=== PATIENT | female | born 1990 | race Caucasian/White ===

== ENCOUNTER 2017-04-20 16:53 | Observation (INO) | payer OTHER ==
[~2017-04-20] VITALS: Ht 160 cm; Wt 58.2 kg
[~2017-04-20 16:53] MED LIST: ONDA4TAB97 PO
--- NOTE | 2017-04-20 17:01 | ER Report ---
History and Physical Time Seen By MD: 17:00 HPI/ROS CHIEF COMPLAINT: Fever, jaundice HISTORY OF PRESENT ILLNESS: 27-year-old female patient presents to emergency room with complaint of fever and jaundice. Patient states that she is not been feeling well for proximally 7 days. She states that she was seen at the urgent care, and they diagnosed with influenza. She states that she followed up with the urgent care again on Sunday of this past week and they felt that she had a otitis media. They started her on cefdinir. She went and saw the beginning yesterday, they told her that she had mono and there is nothing they could do. She states that her father came to visit today, when he saw her he stated that she looked yellow. He took her to the [facility]. [facility] for further evaluation. Patient states she's been having neck pain, headache. She states it seems to get better after she takes Aleve. She states that she's been taking [id number]. She states she is not taking more than one Tylenol a day. She denies having any nausea, vomiting or diarrhea. She states that her urine has become darker. REVIEW OF SYSTEMS: Respiratory: No cough, no dyspnea. Cardiovascular: No chest pain, no palpitations. Gastrointestinal: No vomiting, no abdominal pain. 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 Reviewed Nurses Notes: Yes Hx Substance Use Disorder: No Hx Alcohol Use: Yes Constitutional Vital Sign - Last 24 Hours 04/20/17 04/20/17 04/20/17 04/20/17 17:00 17:01 17:07 17:30 Temp 97.6 Pulse 104 105 Resp 20 B/P (MAP) 125/86 125/86 (99) 121/87 (98) Pulse Ox 95 95 O2 Delivery Room Air 04/20/17 04/20/17 04/20/17 04/20/17 17:35 18:05 18:30 18:35 Pulse ??? 95 95 B/P (MAP) 124/99 (107) Pulse Ox 100 97 Physical Exam General Appearance: The patient is alert, has no immediate need for airway protection and no current signs of toxicity. Patient does appear jaundiced Eyes: Pupils equal and round no injection. Patient has jaundice bilaterally. Respiratory: Chest is non tender, lungs are clear to auscultation. Cardiac: regular rate and rhythm Gastrointestinal: Abdomen is soft and tender in the epigastric region, right upper quadrant, no masses, bowel sounds are hypoactive. Musculoskeletal: Neck: Neck is supple and non tender. Patient has enlarged cervical lymphadenopathy. Extremities have full range of motion and are non tender. Skin: No rashes or lesions. Patient is jaundiced to arms and face. DIFFERENTIAL DIAGNOSIS: After history and physical exam differential diagnosis was considered for viral syndrome, HIV, mono, influenza, cholecystitis, hepatitis Medical Decision Making Data Points Result Diagram: 04/20/17 1707 04/20/17 170 Laboratory Hematology Test 04/20/17 16:55 04/20/17 17:07 Urine Color Eve Urine Clarity Clear Urine pH 6.0 pH (4.8-9.5) Urine Specific [place] 1.009 Urine Protein Negative mg/dL (NEGATIVE) Urine Glucose (UA) Negative mg/dL (NEGATIVE) Urine Ketones Trace mg/dL (NEGATIVE) Urine Blood Negative (NEGATIVE) Urine Nitrite Negative (NEGATIVE) Urine Bilirubin Negative (NEGATIVE) Urine Urobilinogen 2.0 mg/dL (0.2-1.9) Urine Leukocyte Esterase Negative (NEGATIVE) Urine RBC <1 /HPF (0-2/HPF) Urine WBC 2 /HPF (0-5/HPF) Urine Squamous Epithelial Cells Many /LPF (</=FEW) Urine Bacteria Negative /HPF (NONE-FEW) Urine Mucus None /HPF (NONE-FEW) Red Blood Count 5.14 M/uL (4.17-5.56) Mean Corpuscular Volume 86.6 fL (80.0-96.0) Mean Corpuscular Hemoglobin 30.2 pg (26.0-33.0) Mean Corpuscular Hemoglobin Concent 34.9 g/dL (32.0-36.0) Red Cell Distribution Width 12.6 % (11.5-14.5) Mean Platelet Volume 8.3 fL (7.2-11.1) Neutrophils (%) (Auto) % (39.4-72.5) Lymphocytes (%) (Auto) % (17.6-49.6) Monocytes (%) (Auto) % (4.1-12.4) Eosinophils (%) (Auto) % (0.4-6.7) Basophils (%) (Auto) % (0.3-1.4) Nucleated RBC Relative Count (auto) /100WBC Neutrophils # (Auto) K/uL (2.0-7.4) Lymphocytes # (Auto) K/uL (1.3-3.6) Monocytes # (Auto) K/uL (0.3-1.0) Eosinophils # (Auto) K/uL (0.0-0.5) Basophils # (Auto) K/uL (0.0-0.1) Nucleated RBC Absolute Count (auto) K/uL Neutrophils % (Manual) 14 % (39.4-72.5) Lymphocytes % (Manual) 67 % (17.6-49.6) Atypical Lymphocytes % 13 % Monocytes % (Manual) 6 % (4.1-12.4) Eosinophils % (Manual) 0 % (0.4-6.7) Basophils % (Manual) 0 % (0.3-1.4) Erythrocyte Sedimentation Rate 31 mm/HOUR (0-20) Prothrombin Time 13.5 seconds (12.0-14.4) Prothromb Time International Ratio 1.03 Activated Partial Thromboplast Time 33 seconds (23-35) Sodium Level 136 mmol/L (137-145) Potassium Level 3.2 mmol/L (3.5-5.0) Chloride Level 98 mmol/L (98-107) Carbon Dioxide Level 25 mmol/L (22-31) Blood Urea Nitrogen 5 mg/dl (7-18) Creatinine 0.70 mg/dl (0.52-1.04) Glomerular Filtration Rate Calc > 60.0 Random Glucose 97 mg/dl (75-110) Calcium Level 9.0 mg/dl (8.4-10.2) Total Bilirubin 7.7 mg/dl (0.2-1.3) Aspartate Amino Transf (AST/SGOT) 452 U/L (0-35) Alanine Aminotransferase (ALT/SGPT) 752 U/L (0-56) Alkaline Phosphatase 486 U/L (0-126) C-Reactive Protein 3.3 mg/dl (<1.0) Total Protein 7.6 gm/dl (6.3-8.2) Albumin 3.7 g/dl (3.5-5.0) Monoscreen Positive (NEGATIVE) HIV (1&2) Antibody Negative (NEGATIVE) Influenza Virus Type A (PCR) Negative (NEGATIVE) Influenza Virus Type B (PCR) Negative (NEGATIVE) Group A Streptococcus Screen Negative (NEGATIVE) Chemistry Test 04/20/17 16:55 04/20/17 17:07 Urine Color Eve Urine Clarity Clear Urine pH 6.0 pH (4.8-9.5) Urine Specific [place] 1.009 Urine Protein Negative mg/dL (NEGATIVE) Urine Glucose (UA) Negative mg/dL (NEGATIVE) Urine Ketones Trace mg/dL (NEGATIVE) Urine Blood Negative (NEGATIVE) Urine Nitrite Negative (NEGATIVE) Urine Bilirubin Negative (NEGATIVE) Urine Urobilinogen 2.0 mg/dL (0.2-1.9) Urine Leukocyte Esterase Negative (NEGATIVE) Urine RBC <1 /HPF (0-2/HPF) Urine WBC 2 /HPF (0-5/HPF) Urine Squamous Epithelial Cells Many /LPF (</=FEW) Urine Bacteria Negative /HPF (NONE-FEW) Urine Mucus None /HPF (NONE-FEW) White Blood Count 9.1 k/uL (4.5-11.0) Red Blood Count 5.14 M/uL (4.17-5.56) Hemoglobin 15.5 g/dL (12.0-16.0) Hematocrit 44.6 % (34.0-47.0) Mean Corpuscular Volume 86.6 fL (80.0-96.0) Mean Corpuscular Hemoglobin 30.2 pg (26.0-33.0) Mean Corpuscular Hemoglobin Concent 34.9 g/dL (32.0-36.0) Red Cell Distribution Width 12.6 % (11.5-14.5) Platelet Count 90 K/uL (150-450) Mean Platelet Volume 8.3 fL (7.2-11.1) Neutrophils (%) (Auto) % (39.4-72.5) Lymphocytes (%) (Auto) % (17.6-49.6) Monocytes (%) (Auto) % (4.1-12.4) Eosinophils (%) (Auto) % (0.4-6.7) Basophils (%) (Auto) % (0.3-1.4) Nucleated RBC Relative Count (auto) /100WBC Neutrophils # (Auto) K/uL (2.0-7.4) Lymphocytes # (Auto) K/uL (1.3-3.6) Monocytes # (Auto) K/uL (0.3-1.0) Eosinophils # (Auto) K/uL (0.0-0.5) Basophils # (Auto) K/uL (0.0-0.1) Nucleated RBC Absolute Count (auto) K/uL Neutrophils % (Manual) 14 % (39.4-72.5) Lymphocytes % (Manual) 67 % (17.6-49.6) Atypical Lymphocytes % 13 % Monocytes % (Manual) 6 % (4.1-12.4) Eosinophils % (Manual) 0 % (0.4-6.7) Basophils % (Manual) 0 % (0.3-1.4) Erythrocyte Sedimentation Rate 31 mm/HOUR (0-20) Prothrombin Time 13.5 seconds (12.0-14.4) Prothromb Time International Ratio 1.03 Activated Partial Thromboplast Time 33 seconds (23-35) Glomerular Filtration Rate Calc > 60.0 Calcium Level 9.0 mg/dl (8.4-10.2) Total Bilirubin 7.7 mg/dl (0.2-1.3) Aspartate Amino Transf (AST/SGOT) 452 U/L (0-35) Alanine Aminotransferase (ALT/SGPT) 752 U/L (0-56) Alkaline Phosphatase 486 U/L (0-126) C-Reactive Protein 3.3 mg/dl (<1.0) Total Protein 7.6 gm/dl (6.3-8.2) Albumin 3.7 g/dl (3.5-5.0) Monoscreen Positive (NEGATIVE) HIV (1&2) Antibody Negative (NEGATIVE) Influenza Virus Type A (PCR) Negative (NEGATIVE) Influenza Virus Type B (PCR) Negative (NEGATIVE) Group A Streptococcus Screen Negative (NEGATIVE) Coagulation Test 04/20/17 17:07 Prothrombin Time 13.5 seconds Prothromb Time International Ratio 1.03 Activated Partial Thromboplast Time 33 seconds Urinalysis Test 04/20/17 16:55 Urine Color Eve Urine Clarity Clear Urine pH 6.0 pH (4.8-9.5) Urine Specific [place] 1.009 Urine Protein Negative mg/dL (NEGATIVE) Urine Glucose (UA) Negative mg/dL (NEGATIVE) Urine Ketones Trace mg/dL (NEGATIVE) Urine Blood Negative (NEGATIVE) Urine Nitrite Negative (NEGATIVE) Urine Bilirubin Negative (NEGATIVE) Urine Urobilinogen 2.0 mg/dL (0.2-1.9) Urine Leukocyte Esterase Negative (NEGATIVE) Urine RBC <1 /HPF (0-2/HPF) Urine WBC 2 /HPF (0-5/HPF) Urine Squamous Epithelial Cells Many /LPF (</=FEW) Urine Bacteria Negative /HPF (NONE-FEW) Urine Mucus None /HPF (NONE-FEW) EKG/Imaging Imaging EXAMINATION: CT Abdomen and Pelvis With Contrast 04/20/2017 5:23 PM HISTORY: abdominal pain TECHNIQUE: Spiral scan was through the abdomen and pelvis during injection of nonionic iodinated intravenous contrast. Contrast: 75 mL of IV Isovue 370. One of the following dose optimization techniques was utilized in the performance of this exam: Automated exposure control; adjustment of the mA and/ or kV according to the patient's size; or use of an iterative reconstruction technique. Specific details can be referenced in the facility's radiology CT exam operational policy. COMPARISON STUDIES: Separate chest x-ray today. FINDINGS: Liver / biliary: Mildly prominent. Smooth capsular contours. No focal finding. Pancreas: negative Spleen: Borderline to mildly prominent. 1 cm cyst along the posterior edge. Adrenal glands: negative Kidneys / retroperitoneum: No stone or obstruction. Normal enhancement without findings of pyelonephritis/UTI. Pelvic structures: Partially retroverted uterus. Free fluid in the cul-de- sac is within physiologic normal range in a female of this age. No ovarian or adnexal pathology evident otherwise. Bowel / peritoneum / mesenteries: Negative. No obstruction or focal inflammation. Normal appendix. Vessels: negative Musculoskeletal / Body wall: negative Lymph node assessment: Nonspecific retroperitoneal and inguinal lymph nodes are likely reactive. No clear pathologic adenopathy. Lower chest: negative IMPRESSION: 1. Mild nonspecific hepatosplenomegaly. Patient also has small and somewhat numerous retroperitoneal lymph nodes which are most likely reactive. 2. Free fluid in the pelvis. This is within physiologic normal range in a female of this age but can indicate recent ovarian cyst or follicle rupture. Report Dictated By: Cedric Rose MD at 04/20/2017 5:59 PM Report E-Signed By: Cedric Rose MD at 04/20/2017 6:06 PM EXAMINATION: PA and Lateral Chest 04/20/2017 5:18 PM HISTORY: Fever. Patient reports not feeling well for one week. COMPARISON: None FINDINGS: Cardiomediastinal contours: Normal Lungs and pleura: Normal Bones/soft tissues: Normal IMPRESSION: No acute cardiopulmonary abnormality. Report Dictated By: Cedric Rose MD at 04/20/2017 5:58 PM Report E-Signed By: Cedric Rose MD at 04/20/2017 5:59 PM ED Course/Re-evaluation ED Course Patient was admitted to examine, history and physical were obtained. Differential diagnoses were considered. On examination patient does appear to be jaundiced. She does have some tenderness to the upper abdomen. A CBC, CMP, chest x-ray, urinalysis, Monospot, hepatitis A panel, hepatitis B antibody and surface antigen, hepatitis C, HIV and strep screen were done. The patient had a low platelet count of 90, liver enzymes were elevated at 500 and 700. Bilirubin was 7.7. She was also positive for mono. She was negative for HIV. He chest x- ray and a CT scan of the abdomen and pelvis was done. The chest x-ray was negative, the CT scan shows hepatosplenomegaly with some enlarged lymph nodes in the abdomen. I discussed the case with isrrael Anderson. He felt that it would be reasonable to admit the patient to hospital, monitor overnight and rehydrated. I discussed the findings with the patient and her father. Patient did agree to be admitted to the hospital. We'll go ahead and admit her to the hospital with diagnosis of mono and jaundice. Decision to Disposition Date: Apr 20, 2017 Decision to Disposition Time: 18:55 Depart Departure Latest Vital Signs Vital Signs Date Time Temp Pulse Resp B/P (MAP) Pulse Ox O2 Delivery O2 Flow Rate FiO2 04/20/17 18:35 95 97 04/20/17 18:30 124/99 (107) 04/20/17 17:01 97.6 20 Room Air Impression: Primary Impression: Mononucleosis Additional Impression: Jaundice Condition: Condition Unchanged Disposition: Admitted from ER New Scripts No Active Prescriptions or Reported Meds Problem Qualifiers NAYE KING Apr 20, 2017 17:01
[2017-04-20] MEDS ORDERED: NS(*) 0.9% 1000 ML BAG 1,000 ML IV ONE (17:18)
[2017-04-20] MEDS ORDERED: IOPAMIDOL 76% 75 ML INFUS BTL 75 ML ONE (17:32)
[2017-04-20] MEDS ORDERED: NS 0.9% 20 ML SDV 60 ML ONE (17:32)
[2017-04-20 17:34] LABS: PLATELET COUNT, AUTOMATED 90 K/uL (150-450)
[2017-04-20 17:42] LABS: INR 1.03
--- NOTE | 2017-04-20 18:04 | RADIOLOGY IMAGING REPORT ---
FACILITY: [facility] - [place], [place] PATIENT NAME: Monique Downs : 1990 MR: [id number] V: [id number] EXAM DATE: ORDERING PHYSICIAN: NAYE KING TECHNOLOGIST: Location: [facility] Patient: Monique Downs : 1990 Visit/Account:[id number] Date of Sevice: 04/20/2017 EXAMINATION: PA and Lateral Chest 04/20/2017 5:18 PM HISTORY: Fever. Patient reports not feeling well for one week. COMPARISON: None FINDINGS: Cardiomediastinal contours: Normal Lungs and pleura: Normal Bones/soft tissues: Normal IMPRESSION: No acute cardiopulmonary abnormality. Report Dictated By: Cedric Rose MD at 04/20/2017 5:58 PM Report E-Signed By: Cedric Rose MD at 04/20/2017 5:59 PM WSN:[id number]
--- NOTE | 2017-04-20 18:09 | RADIOLOGY IMAGING REPORT ---
FACILITY: [facility] PATIENT NAME: Monique Downs : 1990 MR: [id number] V: [id number] EXAM DATE: ORDERING PHYSICIAN: NAYE KING TECHNOLOGIST: Location: [facility] Patient: Monique Downs : 1990 Visit/Account:[id number] Date of Sevice: 04/20/2017 EXAMINATION: CT Abdomen and Pelvis With Contrast 04/20/2017 5:23 PM HISTORY: abdominal pain TECHNIQUE: Spiral scan was through the abdomen and pelvis during injection of nonionic iodinated in travenous contrast. Contrast: 75 mL of IV Isovue 370. One of the following dose optimization techniques was utilized in the performance of this exam: Autom ated exposure control; adjustment of the mA and/or kV according to the patient's size; or use of an i terative reconstruction technique. Specific details can be referenced in the facility's radiology C T exam operational policy. COMPARISON STUDIES: Separate chest x-ray today. FINDINGS: Liver / biliary: Mildly prominent. Smooth capsular contours. No focal finding. Pancreas: negative Spleen: Borderline to mildly prominent. 1 cm cyst along the posterior edge. Adrenal glands: negative Kidneys / retroperitoneum: No stone or obstruction. Normal enhancement without findings of pyelonephr itis/UTI. Pelvic structures: Partially retroverted uterus. Free fluid in the cul-de-sac is within physiologi c normal range in a female of this age. No ovarian or adnexal pathology evident otherwise. Bowel / peritoneum / mesenteries: Negative. No obstruction or focal inflammation. Normal appendix. Vessels: negative Musculoskeletal / Body wall: negative Lymph node assessment: Nonspecific retroperitoneal and inguinal lymph nodes are likely reactive. No c lear pathologic adenopathy. Lower chest: negative IMPRESSION: 1. Mild nonspecific hepatosplenomegaly. Patient also has small and somewhat numerous retroperitoneal lymph nodes which are most likely reactive. 2. Free fluid in the pelvis. This is within physiologic normal range in a female of this age but can indicate recent ovarian cyst or follicle rupture. Report Dictated By: Cedric Rose MD at 04/20/2017 5:59 PM Report E-Signed By: Cedric Rose MD at 04/20/2017 6:06 PM WSN:[id number]
[2017-04-20 20:02] VITALS: BP 122/91
[2017-04-20] MEDS ORDERED: KCL 2 MEQ/ML 20 MEQ/10 ML VIAL 20 MEQ in NS(*) 0.9% 1000 ML BAG 1,000 ML IV PRN (21:45)
[2017-04-20] MEDS ORDERED: ONDANSETRON 4 MG/2 ML VIAL IVP PRN (21:45)
--- NOTE | 2017-04-20 22:06 | History & Physical ---
History of Present Illness Chief Complaint Sore throat, Yellow discoloration of her eyes and fever History of Present Illness Ms. Downs is a 27-year-old female without any PMH presents to emergency room with complaint of fever and jaundice. Patient states that she is not been feeling well for proximally 7 days. She states that she was seen at the urgent care, and they diagnosed with influenza. She states that she followed up with the urgent care again on Sunday of this past week and they felt that she had a otitis media. They started her on cefdinir. She went and saw the beginning yesterday, they told her that she had mono and there is nothing they could do. She states that her father came to visit today, when he saw her he stated that she looked yellow. He took her to the [facility] [place]. On examination [facility] referred her to the emergency room for further evaluation. Patient states she's been having neck pain, headache. She states it seems to get better after she takes Aleve. She states that she's been taking [id number]. She states she is not taking more than one Tylenol a day. She denies having any nausea, vomiting or diarrhea. She states that her urine has become darker. During the ER evaluation, CT scan of the A/P revealed 1. Mild nonspecific hepatosplenomegaly. Patient also has small and somewhat numerous retroperitoneal lymph nodes which are most likely reactive. 2. Free fluid in the pelvis. This is within physiologic normal range in a female of this age but can indicate recent ovarian cyst or follicle rupture. Her CXR revealed no acute cardiopulmonary abnormality. Her Monospot test came back positive. Her LFT's were elevated, Platelets were low and also had low K level. I discussed the case with the ER-MD and admitted the patient for further evaluation and management. She c/o neck pain, sore throat, yellow discoloration of her eyes and skin and sore body. She also has low appetite. History Home Meds Discontinued Scripts Ondansetron Hcl (ZOFRAN) 4 Mg Tablet, 4 MG PO Q6H Y for NAUSEA/VOMITING, #10 Prov:MARGUERITE ANN Hernandez DO 12/23/16 Allergies: Coded Allergies: walnut (Verified Allergy, Intermediate, 12/23/16) peanut (Verified Allergy, Unknown, 04/20/17) Hx Smoking: No Smoking Status: Never Smoker Exposure to Second Hand Smoke?: No Caffeine Intake: Coffee, Tea Caffeine/Cups Per Day: 1-2 cups Hx Alcohol Use: Yes Alcohol Used: Beer Hx Substance Use Disorder: No Social Drug Use: Never History of IV Drug Use: No Review of Systems Constitutional: Fever, No Weight Loss, No Weight Gain, No Chills, No Night Sweats Neurological: No Syncope, No Confusion, No Weakness, No Dizziness, No Slurred Speech, No Other Eyes: No Vision Change, No Loss of Vision, No Photophobia ENT: Sore Throat, Ear Ache, No Hearing Loss, No Sinus Congestion, No Tinnitus Cardiovascular: No Chest Pain, No Palpitations Respiratory: No Shortness of Breath, No Cough, No Wheezing Gastrointestinal: Nausea, No Vomiting, No Diarrhea, No Dysphagia, No Constipation, Early Satiety, No Hematemesis, No Hematochezia, No Melena, Abdominal Pain Genitourinary: No Dysuria, No Hematuria Musculoskeletal: Pain, No Sprain, No Strain, No Impaired Mobility Psychiatric: No Depression, No Anxiety Exam Vital Signs Vital Signs Date Time Temp Pulse Resp B/P (MAP) Pulse Ox O2 Delivery O2 Flow Rate FiO2 04/20/17 20:02 97.9 106 16 122/91 (101) 96 Room Air General Appearance: Alert, Awake, No Acute Distress, Afebrile Neuro: No Gross deficits Eyes: PERRLA (Icteric sclera) ENT: Other (mild exudation of tonsils, mild posterior pharyngeal erythema) Neck: Other (positive lymphadenopathy) Cardiovascular: Normal Rhythm & Peripheral Pulses Respiratory: No Respiratory Distress Chest: No Masses GI: Abd Soft and Non-Tender (mild tenderness R & LUQ) : Normal Lymph: Other (positive ) Extremities: Soft and Non Tender Integumentary: Skin Intact without Lesion / Mass, Jaundice Psych: Alert & Oriented X3, Appropriate Mood & Affect Medical Decision Making Data Points Result Diagram: 04/20/17 17004/[id number]/171706 Pre-Admit Course Medical Record Review: Yes Assessment and Plan Problems: (1) Mononucleosis Status: Acute Assessment & Plan: I will admit the patient for further evaluation of her acute EBV infection with elevated LFT's, thrombocytopenia and hypokalemia. I will start her on IVF 100ml/h of normal saline. I will use Ibuprofen 400mg po q6h for her pain and fever. I will also continue her Omnicef 300mg po bid and finish the course. I will repeat her CMP and CBC in am for her LFT's and Platelets I advised her to avoid heavy exercises for at least 3-4 weeks. (2) Hypokalemia Status: Acute Assessment & Plan: I will start her on IVF NS with 20meq KCL at 100ml/h and repeat her K level in am Central Venous Access Medical Necessity for Access: IV Access Time Spent on Plan of Care: > 30 min Copies to: [facility] Venous Thromboembolism VTE Risk Physician Assess for VTE Risk: Yes Patient's VTE Risk: Low VTE Diagnostic Test 2 Days Prior to Admit: No Antithrombotics Is Pt On Any Antithrombotics?: No Exam Sepsis Risk: No Definite Risk ALEX CASTILLO MD Apr 20, 2017 22:06
[2017-04-20] MEDS ORDERED: KCL/NS* 20 MEQ/1000 ML PREMIX 1,000 ML IV ONE (23:17)
[2017-04-20] MEDS: IBUPROFEN 200 MG TAB PO PRN (23:18)
[2017-04-20 23:22] VITALS: BP 110/71
[2017-04-21 05:42] LABS: PLATELET COUNT, AUTOMATED 89 K/uL (150-450)
[2017-04-21 06:28] VITALS: BP 119/77
[2017-04-21] MEDS ORDERED: KCL/NS* 20 MEQ/1000 ML PREMIX 1,000 ML IV PRN (08:10)
[2017-04-21] MEDS: IBUPROFEN 200 MG TAB PO PRN (08:10)
[2017-04-21] MEDS ORDERED: CEFDINIR 300 MG CAP PO SCH (09:00)
[2017-04-21] MEDS ORDERED: POTASSIUM CHL 20 MEQ TABCR PO SCH (09:10)
[2017-04-21] MEDS ORDERED: FLUCONAZOLE 150 MG TAB PO ONE (09:50)
[2017-04-21 11:29] VITALS: Ht 160 cm; Wt 58.2 kg
--- NOTE | 2017-04-21 15:41 | Hospitalist Depart ---
Discharge Summary Reason for Hosp/Final Diag: (1) Mononucleosis Status: Acute Hospital Course & Plan: Ms. Downs is a 27-year-old female without any PMH presents to emergency room with complaint of fever and jaundice. Patient states that she is not been feeling well for proximally 7 days. She states that she was seen at the urgent care, and they diagnosed with influenza. She states that she followed up with the urgent care again on Sunday of this past week and they felt that she had a otitis media. They started her on cefdinir. She went and saw the beginning yesterday, they told her that she had mono and there is nothing they could do. She states that her father came to visit today, when he saw her he stated that she looked yellow. He took her to the [facility]. On examination [facility] referred her to the emergency room for further evaluation. Patient states she's been having neck pain, headache. She states it seems to get better after she takes Aleve. She states that she's been taking [id number]. She states she is not taking more than one Tylenol a day. She denies having any nausea, vomiting or diarrhea. She states that her urine has become darker. During the ER evaluation, CT scan of the A/P revealed 1. Mild nonspecific hepatosplenomegaly. Patient also has small and somewhat numerous retroperitoneal lymph nodes which are most likely reactive. 2. Free fluid in the pelvis. This is within physiologic normal range in a female of this age but can indicate recent ovarian cyst or follicle rupture. Her CXR revealed no acute cardiopulmonary abnormality. Her Monospot test came back positive. Her LFT's were elevated, Platelets were low and also had low K level. I discussed the case with the ER-MD and admitted the patient for further evaluation and management. She c/o neck pain, sore throat, yellow discoloration of her eyes and skin and sore body. She also has low appetite. Overnight she felt the same and she decided to go home and f/u with the [facility] Plan: I will admit the patient for further evaluation of her acute EBV infection with elevated LFT's, thrombocytopenia and hypokalemia. I will start her on IVF 100ml/h of normal saline. I will use Ibuprofen 400mg po q6h for her pain and fever. I will also continue her Omnicef 300mg po bid and finish the course. I will repeat her CMP and CBC in am for her LFT's and Platelets I advised her to avoid heavy exercises for at least 3-4 weeks. She should ff/u with PCP and get LFT's and CBC She could take Aleve or Motrin for her pain. Her fatigue can last up to 3 months (2) Hypokalemia Status: Acute Hospital Course & Plan: I will start her on IVF NS with 20meq KCL at 100ml/h and repeat her K level in am 04/21: Her K level is 3.4 and I will give her KCL 20meq x2 doses Departure Weight (Pounds): 128 Weight (Ounces): 6.0 Result Diagram: 04/21/1713 04/21/17512 Condition: Improved Discharge: Home, Self Care Time Spent: < 30 min Discharge Instructions Home Meds Discontinued Scripts Ondansetron Hcl (ZOFRAN) 4 Mg Tablet, 4 MG PO Q6H Y for NAUSEA/VOMITING, #10 Prov:MARGUERITE ANN DO 12/23/16 Diet: Regular Activity: As Tolerated, No Heavy Lifting, No Exertion Special Instructions: Follow up with [facility] in 1 week Continue and finish Omnicef 300mg po bid Avoid heavy exercises,lifting and games for 3-4 weeks Repeat LFT's and CBC q weekly Use Aleve or Motrin q6h for pain Copies to: [facility] Venous Thromboembolism Antithrombotics Is Pt On Any Antithrombotics?: No ALEX CASTILLO MD Apr 21, 2017 15:41
== END 2017-04-21 11:20 | disposition home or self-care (01) ==
LOC: ER 17:00 → MED 18:44 → INTOOBSV 18:44
PROVIDERS: ADMIT Specialist; ATTEND Specialist
DX: B27.90 Infectious mononucleosis, unspecified without complication (principal); R17 Unspecified jaundice; E87.6 Hypokalemia; E86.0 Dehydration
CPT/HCPCS: 36415; 71046; 74177; 81001; 85025; 85610; 85651; 85730; 86140; 86308; 86703; 86706; 86708; 86709; 86803; 87081; 87340; 87502; 87880; 99285; G0378; J3480; J7030; J7050; Q9967; 82040; 82247; 82310; 82374; 82435; 82565; 82947; 84075; 84132; 84155; 84295; 84450; 84460; 84520

== ENCOUNTER → 2017-05-01 | Outpatient (REF) | payer OTHER ==
[2017-04-21 11:29] VITALS: BMI 22.7
[2017-05-01 19:54] LABS: PLATELET COUNT, AUTOMATED 385 K/uL (150-450)
== END ==
LOC: ZZSTITCHES 19:43
PROVIDERS: ATTEND Physician Assistant
DX: R74.0 Nonspecific elevation of levels of transaminase and lactic acid dehydrogenase [LDH] (principal); B27.89 Other infectious mononucleosis with other complication
CPT/HCPCS: 82040; 82247; 82310; 82374; 82435; 82565; 82947; 84075; 84132; 84155; 84295; 84450; 84460; 84520; 85025

== ENCOUNTER → 2017-05-10 | Outpatient (REF) | payer OTHER ==
[2017-04-21 11:29] VITALS: BMI 22.7
[2017-05-10 17:34] LABS: PLATELET COUNT, AUTOMATED 392 K/uL (150-450)
== END ==
LOC: ZZSENDIN 17:20
PROVIDERS: ATTEND Physician Assistant
DX: R74.0 Nonspecific elevation of levels of transaminase and lactic acid dehydrogenase [LDH] (principal); B27.89 Other infectious mononucleosis with other complication
CPT/HCPCS: 82040; 82247; 82310; 82374; 82435; 82565; 82947; 84075; 84132; 84155; 84295; 84450; 84460; 84520; 85025

== ENCOUNTER → 2017-05-18 | Outpatient (REF) | payer OTHER ==
[2017-04-21 11:29] VITALS: BMI 22.7
[2017-05-18 11:49] LABS: PLATELET COUNT, AUTOMATED 324 K/uL (150-450)
== END ==
LOC: ZZSTITCHES 11:17
PROVIDERS: ATTEND Physician Assistant
DX: R74.0 Nonspecific elevation of levels of transaminase and lactic acid dehydrogenase [LDH] (principal); B27.89 Other infectious mononucleosis with other complication
CPT/HCPCS: 82040; 82247; 82310; 82374; 82435; 82565; 82947; 84075; 84132; 84155; 84295; 84450; 84460; 84520; 85025

== ENCOUNTER → 2017-10-04 | Outpatient (REF) | payer OTHER ==
[2017-04-21 11:29] VITALS: BMI 22.7
[2017-10-04 11:02] LABS: PLATELET COUNT, AUTOMATED 288 K/uL (150-450)
== END ==
LOC: ZZSTITCHES 10:53
PROVIDERS: ATTEND Physician Assistant
DX: R17 Unspecified jaundice (principal); R10.9 Unspecified abdominal pain
CPT/HCPCS: 82040; 82247; 82310; 82374; 82435; 82565; 82947; 84075; 84132; 84155; 84295; 84450; 84460; 84520; 85025

== ENCOUNTER → 2018-06-03 | Outpatient (CLI) | payer OTHER ==
[2017-04-21 11:29] VITALS: BMI 22.7
== END ==
LOC: LAB 16:18
PROVIDERS: ATTEND Surgery
DX: D18.01 Hemangioma of skin and subcutaneous tissue (principal)
CPT/HCPCS: 88305